=== PATIENT | female | born 1975 | race Caucasian/White ===

== ENCOUNTER → 2018-07-20 | Outpatient (CLI) | payer OTHER ==
--- NOTE | 2018-07-23 08:31 | RAD ---
DATE: 07/22/2018 EXAM: MAMMO SRAVANTHI SCREENING BILATERAL HISTORY: Screening evaluation COMPARISON: 04/25/2015 screen mammographic exam This study was interpreted with the benefit of Computerized Aided Detection (CAD ). Breast Density: HETERO The breast parenchyma is heterogenously dense, which could reduce sensitivity of mammography. Breast parenchyma level C. FINDINGS: Parenchymal distribution is stable. No suspicious calcification clusters or distortion. Minimal benign calcification is present. There is a focal asymmetry at the right upper outer breast posteriorly which measures up to 5 cm appears more evident than on the prior exam although it may represent summation of breast parenchyma. It is located 6 cm deep from the nipple. IMPRESSION: Right breast spot compression imaging at the upper outer aspect is recommended. Ultrasound may be needed. Annual screening mammography recommended. BI-RADS CATEGORY: 0 INCOMPLETE: NEEDS ADDITIONAL IMAGING EVALUATION AND/OR PRIOR MAMMOGRAMS FOR COMPARISON. RECOMMENDED FOLLOW-UP: PQRS compliance statement: Patient information was entered into a reminder system with a target due date for the next mammogram. Mammography is a sensitive method for finding small breast cancers, but it does not detect them all and is not a substitute for careful clinical examination. A negative mammogram does not negate a clinically suspicious finding and should not result in delay in biopsying a clinically suspicious abnormality. "Our facility is accredited by the [employer] Mammography [employer]." KIKED
== END | disposition home or self-care (01) ==
LOC: MAMMO 11:07
PROVIDERS: ATTEND Obstetrics & Gynecology
DX: Z12.31 Encounter for screening mammogram for malignant neoplasm of breast (principal)
CPT/HCPCS: 77063; 77067

== ENCOUNTER → 2018-08-10 | Outpatient (CLI) | payer OTHER ==
--- NOTE | 2018-08-10 14:29 | RAD ---
DATE: August 10, 2018 EXAM: DIGITAL DIAGNOSTIC RT, BREAST RIGHT SONOGRAM HISTORY: Further evaluation of asymmetric density of the upper outer quadrant of the right breast seen on screening mammogram. Patient has no palpable findings. COMPARISON: July 20, 2018 This study was interpreted with the benefit of Computerized Aided Detection (CAD). FINDINGS: Focal digital 2-D compression views of the right breast in the CC and 90 degree projections were performed. There is a persistent large area of asymmetric dense breast tissue within the upper-outer quadrant. Sonography will be performed. RIGHT BREAST SONOGRAPHY: High-resolution sonography of the upper outer quadrant of the right breast was performed. Dense nodular breast parenchyma is seen in this area which accounts for the mammographic finding. Incidental note is made of a small hypoechoic nodule measuring 7 mm in greatest dimension with a thin echogenic capsule and less than 3 lobulations. It is wider than it is tall. It is located at the 10:00 position 5 cm from the nipple. This most likely represent a fibroadenoma and may be followed in 6 months. IMPRESSION: Benign nodular breast parenchyma of the upper outer quadrant of the right breast. 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 Recommend a 6 month follow-up sonogram of the right breast for further evaluation. BI-RADS CATEGORY: 3 PROBABLE BENIGN-SHORT TERM F/U RECOMMENDED FOLLOW-UP: 6M 6 MONTH FOLLOW-UP PQRS compliance statement: Patient information was entered into a reminder system with a target due date February 08, 2019 for the next imaging study. Mammography is a sensitive method for finding small breast cancers, but it does not detect them all and is not a substitute for careful clinical examination. A negative mammogram does not negate a clinically suspicious finding and should not result in delay in biopsying a clinically suspicious abnormality. "Our facility is accredited by the [employer] Mammography Program."
--- NOTE | 2018-08-10 16:16 | RAD ---
Examination: Ultrasound pelvis HISTORY: History of ovarian cyst COMPARISON: None available FINDINGS: The uterus measures 9.6 x 9.6 x7.1 cm with endometrium measures 1.2 cm in thickness. There is a large 7.7 cm heterogeneous echogenicity identified in the left anterior fundus of the uterus likely a fibroid. The right ovary measures 4.1 x 2.1 x 2.3 cm. There is a 2.7 cm cystic structure identified in the right ovary likely a cyst. The left ovary measures 2.1 x 2.8 x 1.7 cm. Blood flow identified in the right and left ovaries. There is a 1.5 cm and a 1.2 cm solid-appearing echogenicity identified in the left ovary with vascular flow within. Trace amount of free fluid identified in the pelvis. IMPRESSION: 1. Large 7.7 cm heterogeneous echogenicity identified in the left anterior fundus of the uterus likely fibroid. 2. A 1.5 cm and a 1.2 cm solid-appearing echogenicity identified in the left ovary with vascular flow within probably solid nodules or collapse follicles. Recommend MRI pelvis further evaluation. 3. 2.7 cm cyst identified in the right ovary. Electronically signed by: Jah Narvaez MD (08/10/2018 4:13 PM) [id number]
== END | disposition home or self-care (01) ==
LOC: MAMMO 13:21
PROVIDERS: ATTEND Obstetrics & Gynecology
DX: N63.11 Unspecified lump in the right breast, upper outer quadrant (principal); N83.291 Other ovarian cyst, right side
CPT/HCPCS: 76641; 76830; 76856; 77065

== ENCOUNTER → 2018-09-13 | Outpatient (CLI) | payer OTHER ==
[~2018-09-13] MED LIST: DOCU-109 PO; IBUP-1060 PO; NORE5TAB3 PO; OXYC1TAB7 PO
[2018-09-13 10:15] LABS: BASO # 0.1 x10^3/uL (0.0-0.2); BASO % 1 % (0-3); EOS # 0.1 x10^3/uL (0.0-0.7); EOS % 1 % (0-3); HEMATOCRIT 41.1 % (36.0-47.0); HEMOGLOBIN 13.9 g/dL (12.0-15.5); LYMPH # 1.7 x10^3/uL (1.0-4.8); LYMPH % 28 % (24-48); MEAN CORPUSCULAR HEMOGLOBIN 31 pg (25-35); MEAN CORPUSCULAR HGB CONC 34 g/dL (31-37); MEAN CORPUSCULAR VOLUME 93 fL (79-100); MONO # 0.5 x10^3/uL (0.0-1.1); MONO % 7 % (0-9); NEUT % 63 % (31-73); PLATELET COUNT 220 x10^3/uL (140-400); RED BLOOD COUNT 4.42 x10^6/uL (3.50-5.40); RED CELL DISTRIBUTION WIDTH 14.1 % (11.5-14.5); WHITE BLOOD COUNT 6.3 x10^3/uL (4.0-11.0)
== END | disposition home or self-care (01) ==
LOC: SURGPAT 09:40
PROVIDERS: ATTEND Obstetrics & Gynecology
DX: D21.9 Benign neoplasm of connective and other soft tissue, unspecified (principal)
CPT/HCPCS: 36415; 85025

== ENCOUNTER 2018-09-20 09:17 | Observation (INO) | payer OTHER ==
[~2018-09-20] VITALS: Ht 154.9 cm; Wt 52.2 kg
[~2018-09-20 09:17] MED LIST changes: -DOCU-109 PO; +HYDROmorphone 2 MG/ML VIAL IV PRN; -IBUP-1060 PO; +LIDOCAINE 1% PF 2 ML VIAL. ID PRN; +ONDANSETRON PF 4 MG/2 ML VIAL. IV PRN; -OXYC1TAB7 PO; +PROCHLORPERAZINE 10 MG/2 ML VIAL. IV PRN; +fentaNYL PF VIAL 100 MCG/2 ML VIAL IV PRN
[2018-09-20 09:40] LABS: U PREG PATIENT NEGATIVE (NEG)
[2018-09-20] MEDS: IV RINGERS,LACTATED 1000ML 1,000 ML IV SCH ×2 (09:56→14:23)
[2018-09-20] MEDS ORDERED: BUPIVAC MPF-EPI 0.5%-1:200000 30 ML VIAL. ONE (10:34)
[2018-09-20] MEDS ORDERED: SURGICEL HEMOSTAT 4X8 EACH. ONE (10:35)
[2018-09-20] MEDS ORDERED: ESTROGENS, CONJ VAGINAL CREAM 30GM TUBE. ONE (10:35)
[2018-09-20] MEDS ORDERED: LIDOCAINE 1%/EPI 1:100,000 20 ML VIAL. ONE (10:36)
[2018-09-20] MEDS ORDERED: fentaNYL PF VIAL 250 MCG/5 ML VIAL ONE (11:15)
[2018-09-20] MEDS ORDERED: MIDAZOLAM HCL/PF 2 MG/2 ML VIAL. ONE (11:15)
[2018-09-20] MEDS ORDERED: ROCURONIUM 50 MG/5 ML VIAL. ONE (11:16)
[2018-09-20] MEDS ORDERED: SEVOFLURANE 61 TO 120 MINUTES. IH ONE (12:01)
[2018-09-20] MEDS ORDERED: DEXAMETHASONE SOD PHOS 20 MG/5 ML VIAL. ONE (12:01)
[2018-09-20] MEDS ORDERED: PROPOFOL 20 ML IV ONE (12:01)
[2018-09-20] MEDS ORDERED: ONDANSETRON PF 4 MG/2 ML VIAL. ONE (12:01)
[2018-09-20] MEDS ORDERED: LIDOCAINE 2% PF Vial for OR 5 ML VIAL. ONE (12:01)
[2018-09-20] MEDS ORDERED: NEOSTIGMINE METHYLSULFATE 5 MG/5 ML SYRINGE. ONE (13:32)
[2018-09-20] MEDS ORDERED: GLYCOPYRROLATE 1 MG/5 ML VIAL. ONE (13:32)
--- NOTE | 2018-09-20 13:35 | PDOC ---
BRIEF OPERATIVE NOTE Date: Sep 20, 2018 Pre-Op Diagnosis 1. Fibroids 2. Menorrhagia 3. Bilateral Ovarian Cysts Post-Op Diagnosis Same Procedure Performed TLH & BSO Surgeon Dr. Zuniga Mid Level Developer Gallo Tabor Anesthesia Type: General Blood Loss 100 ml Specimens Obtained cervix, uterus, emily. fallopian tubes and ovaries Findings enlarged, fibroid uterus with emily. ovarian cysts Complications none Operative Note see dictation JUAQUIN ZUNIGA Jr, MD Sep 20, 2018 13:35
[2018-09-20] MEDS ORDERED: ZOLPIDEM 5 MG TABLET. PO PRN (13:45)
[2018-09-20] MEDS ORDERED: ONDANSETRON PF 4 MG/2 ML VIAL. IV PRN (13:45)
[2018-09-20] MEDS ORDERED: CALCIUM CARBONATE 500 MG TAB.CHEW PO PRN (13:45)
[2018-09-20] MEDS ORDERED: PROCHLORPERAZINE 10 MG/2 ML VIAL. IV PRN (13:45)
[2018-09-20] MEDS ORDERED: SIMETHICONE 80 MG TAB.CHEW PO PRN (13:45)
[2018-09-20] MEDS ORDERED: DEXTROSE 50% 25 GM / 50ML DISP.SYRIN. IV PRN (13:45)
[2018-09-20] MEDS ORDERED: KETOROLAC 30 MG/ML VIAL. IV PRN (13:45)
[2018-09-20] MEDS ORDERED: diphenhydrAMINE HCL 25 MG CAPSULE PO PRN (13:45)
[2018-09-20] MEDS ORDERED: 0.9 % SODIUM CHLORIDE 10 ML DISP.SYRIN. IV PRN (13:45)
--- NOTE | 2018-09-20 14:06 | OP ---
DATE OF SURGERY: 09/20/2018 PREOPERATIVE DIAGNOSES: 1. Fibroids. 2. Menorrhagia. 3. Bilateral ovarian cysts. POSTOPERATIVE DIAGNOSES: 1. Fibroids. 2. Menorrhagia. 3. Bilateral ovarian cysts. PROCEDURE: TLH and BSO via da Edward robot. SURGEON: Juaquin Zuniga MD. ETHANOL MAINTENANCE MECHANIC: Tyson Tabor. ANESTHESIA: GETA. ESTIMATED BLOOD LOSS: 100 mL. COMPLICATIONS: None. FINDINGS: Enlarged fibroid uterus with bilateral ovarian cysts. SUMMARY: This is a 43-year-old patient who was diagnosed with menorrhagia, fibroids and bilateral ovarian cysts who required hysterectomy. She was unresponsive to medical treatment and has family history of breast cancer. The patient was counseled on risks, benefits and expectations of TLH-BSO and voiced a clear understanding to proceed. DESCRIPTION OF PROCEDURE: The patient was taken to the surgery suite and placed in dorsal supine position. She was placed in dorsal lithotomy position. She was prepped with Betadine solution for vaginal prep and ChloraPrep for abdominal prep. After adequate anesthesia, bivalve speculum was placed vaginally. Anterior lip of the cervix was grasped with single tooth tenaculum. The Laura uterine manipulator was then placed. The bivalve speculum was removed as was the single tooth tenaculum. Attention was now placed on abdomen. Small transverse skin incision made just below the umbilicus. The Veress needle was then placed through the infraumbilical incision site. The abdomen was allowed to insufflate up to 1.5 liters of CO2 gas. The Veress needle was then removed. The 8-mm camera trocar was then placed. The camera was then positioned. The uterus was enlarged with multiple fibroids. The fallopian tubes appeared normal. The ovaries indicated multiple cysts bilaterally. The incision was made in the left and right lower quadrant, in which 8-mm trocars were placed. An accessory port, a 5-mm size was placed in the left upper quadrant. The robot was then docked in normal fashion. I then proceeded to the console. With the aid of the bipolar cautery, the vessel sealer, the right round ligament was coagulated and dissected. The right infundibulopelvic ligament was coagulated and dissected. The right broad ligament was coagulated and dissected down to and including the right uterine artery. Same process took place with left adnexa. Bladder flap was created using the vessel sealer as well as blunt dissection. Colpotomy was performed at the level of the vaginal ring. The cervix, uterus, bilateral fallopian tubes and ovaries were then removed in their entirety. The vaginal cuff was reapproximated using V-Loc suture in a running fashion. Suction irrigation was utilized to verify good hemostasis of all pedicles. There was small amount of normal saline that was left in the posterior cul-de-sac. The robot was undocked. Trocars removed under direct visualization. The abdomen was allowed to deflate as much as possible along with mechanical manipulation. Four skin incisions were reapproximated using 4-0 Vicryl suture in subcuticular manner. A 0.5% Marcaine with epinephrine was injected at each incision site. A Premarin soaked vaginal packing was placed vaginally and the patient tolerated the procedure well and was taken to recovery room in stable condition. Sponge and needle count correct x 3. JUAQUIN ZUNIGA MD DR: FILIBERTO/johanna JOB#: [id number] / [id number]
[2018-09-20] MEDS: fentaNYL PF VIAL 100 MCG/2 ML VIAL IV PRN ×2 (14:16→14:37)
[2018-09-20] MEDS: MORPHINE SULFATE 2 MG/ML VIAL. IV PRN ×3 (14:51→15:14)
[2018-09-20 15:43] VITALS: BP 99/61
[2018-09-20 20:00] VITALS: BP 105/54
[2018-09-20] MEDS: GABAPENTIN 300 MG CAPSULE. PO SCH (22:17)
[2018-09-20 23:55] VITALS: BP 94/70
[2018-09-21 05:00] VITALS: BP 99/66
[2018-09-21 05:10] LABS: BASO # 0.1 x10^3/uL (0.0-0.2); BASO % 0 % (0-3); EOS % 0 % (0-3); HEMATOCRIT 32.7 % (36.0-47.0); HEMOGLOBIN 11.2 g/dL (12.0-15.5); LYMPH # 1.1 x10^3/uL (1.0-4.8); LYMPH % 9 % (24-48); MEAN CORPUSCULAR HEMOGLOBIN 31 pg (25-35); MEAN CORPUSCULAR HGB CONC 34 g/dL (31-37); MEAN CORPUSCULAR VOLUME 92 fL (79-100); MONO % 9 % (0-9); NEUT # 9.8 x10^3uL (1.8-7.7); NEUT % 82 % (31-73); PLATELET COUNT 168 x10^3/uL (140-400); RED BLOOD COUNT 3.56 x10^6/uL (3.50-5.40)
[2018-09-21] MEDS: GABAPENTIN 300 MG CAPSULE. PO SCH ×2 (06:16→15:17)
[2018-09-21] MEDS: oxyCODONE/APAP 5/325 1 TAB TABLET PO PRN ×2 (10:39→15:18)
[2018-09-21 12:40] VITALS: BP 98/72
[2018-09-21 15:26] VITALS: BP 101/68
--- NOTE | 2018-09-21 18:03 | DISCH ---
DISCHARGE INSTRUCTIONS Condition on Discharge Condition on Discharge: Stable Activity After Discharge Activity Instructions for Disc: Activity as tolerated Lifting Instructions after Dis: No heavy lifting Driving Instructions after Dis: No driving for 2 weeks Diet after Discharge Diet after Discharge: Regular Contacting the DRJulius after DC Call your doctor for: Concerns you may have Follow-Up Follow up with: Dr. Zuniga in 2 weeks. JUAQUIN ZUNIGA Jr, MD Sep 21, 2018 18:03
--- NOTE | 2018-09-21 18:03 | PDOC ---
SURGICAL PROGRESS NOTE Subjective Pt. feeling well. No complaints. Vital Signs Vital Signs Date Time Temp Pulse Resp B/P (MAP) Pulse Ox O2 Delivery O2 Flow Rate FiO2 09/21/18 15:26 97.9 68 18 101/68 (79) 98 97.9 09/21/18 05:00 Room Air 09/20/18 14:00 10 I&O Intake and Output 09/21/18 07:00 Intake Total 3240 ml Output Total 765 ml Balance 2475 ml Intake Oral 690 ml IV Total 2550 ml Tube Feeding 0 ml Output Urine Total 665 ml Estimated Blood Loss 100 ml PATIENT HAS A ORTEGA: No General: Alert, Oriented X3, Cooperative HEENT: Atraumatic Lungs: Clear to auscultation Heart: Regular rate Abdomen: Normal bowel sounds, Soft Extremities: No clubbing, No edema Neuro: Normal gait Psych/Mental Status: Mental status NL Labs Laboratory Tests Test 09/20/18 09:30 09/21/18 05:00 Urine Test Negative (NEG) White Blood Count 12.0 x10^3/uL (4.0-11.0) Red Blood Count 3.56 x10^6/uL (3.50-5.40) Hemoglobin 11.2 g/dL (12.0-15.5) Hematocrit 32.7 % (36.0-47.0) Mean Corpuscular Volume 92 fL (79-100) Mean Corpuscular Hemoglobin 31 pg (25-35) Mean Corpuscular Hemoglobin Concent 34 g/dL (31-37) Red Cell Distribution Width 14.0 % (11.5-14.5) Platelet Count 168 x10^3/uL (140-400) Neutrophils (%) (Auto) 82 % (31-73) Lymphocytes (%) (Auto) 9 % (24-48) Monocytes (%) (Auto) 9 % (0-9) Eosinophils (%) (Auto) 0 % (0-3) Basophils (%) (Auto) 0 % (0-3) Neutrophils # (Auto) 9.8 x10^3uL (1.8-7.7) Lymphocytes # (Auto) 1.1 x10^3/uL (1.0-4.8) Monocytes # (Auto) 1.0 x10^3/uL (0.0-1.1) Eosinophils # (Auto) 0.0 x10^3/uL (0.0-0.7) Basophils # (Auto) 0.1 x10^3/uL (0.0-0.2) Laboratory Tests Test 09/21/18 05:00 White Blood Count 12.0 x10^3/uL (4.0-11.0) Red Blood Count 3.56 x10^6/uL (3.50-5.40) Hemoglobin 11.2 g/dL (12.0-15.5) Hematocrit 32.7 % (36.0-47.0) Mean Corpuscular Volume 92 fL (79-100) Mean Corpuscular Hemoglobin 31 pg (25-35) Mean Corpuscular Hemoglobin Concent 34 g/dL (31-37) Red Cell Distribution Width 14.0 % (11.5-14.5) Platelet Count 168 x10^3/uL (140-400) Neutrophils (%) (Auto) 82 % (31-73) Lymphocytes (%) (Auto) 9 % (24-48) Monocytes (%) (Auto) 9 % (0-9) Eosinophils (%) (Auto) 0 % (0-3) Basophils (%) (Auto) 0 % (0-3) Neutrophils # (Auto) 9.8 x10^3uL (1.8-7.7) Lymphocytes # (Auto) 1.1 x10^3/uL (1.0-4.8) Monocytes # (Auto) 1.0 x10^3/uL (0.0-1.1) Eosinophils # (Auto) 0.0 x10^3/uL (0.0-0.7) Basophils # (Auto) 0.1 x10^3/uL (0.0-0.2) Assessment/Plan A: POD#1 s/p TLH & BSO P: D/c home. JUAQUIN DURAN Jr, MD Sep 21, 2018 18:03
[2018-09-21] MEDS ORDERED: OXYC1TAB7 PO (18:06)
[2018-09-21] MEDS ORDERED: DOCU-109 PO (18:06)
[2018-09-21] MEDS ORDERED: IBUP-1060 PO (18:06)
--- NOTE | 2018-09-22 16:09 | PATHOLOGY ---
[facility] Accession Number: [id number] . 01 Material submitted: . UTERUS WITH CERVIX AND BILATERAL FALLOPIAN TUBES AND OVARIES . 01 Clinical history: . Fibroid uterus, bilateral ovarian cyst, excessive or frequent menstruation . 02 Diagnosis: "Uterus with cervix and bilateral fallopian tubes and ovaries", hysterectomy and bilateral salpingo-oophorectomy: - Cervix with mild chronic cervicitis and focal squamous metaplasia. - Endometrium with weakly proliferative pattern. - Myometrium with an intramural leiomyoma measuring 6.6 cm grossly. - Fallopian tubes, bilateral, with minimal histologic alterations. - Ovary, left, with follicular cyst and corpora albicantia. - Ovary, right, with benign serous cystadenoma, resolving corpus lutea and corpora albicantia. (CLW:rachelle; 09/22/2018) QMS/09/22/2018 . 02 Electronically signed: . Altagracia Gonzalez MD, Pathologist NPI- [id number] . 01 Gross description: . The specimen is received in formalin, labeled "Tereza Lowe, uterus with cervix and bilateral fallopian tubes and ovaries". Received is a 316 g, 12.8 x 8.7 x 8.0 cm uterus with attached cervix and attached adnexa, weighing 7 and 6 g, left and right, respectively. The uterine serosa is pink-solis to light solis and smooth in appearance. The 0.8 cm cervical os is surrounded by pink-solis, granular to smooth ectocervical mucosa. The uterus is oriented using the peritoneal reflection and the anterior paracervical margin is inked black. The uterus is opened laterally to reveal a pale solis, slightly corrugated endocervical canal measuring 2.7 cm in length. The endometrial cavity is linear and moderately distorted measuring 7.2 cm in length by up to 2.9 cm in width. The endometrium is pale solis, glistening in appearance and measures 0.1 cm in thickness. Serial sectioning reveals a solis-pink, trabeculated myometrium measuring up to 3.3 cm in thickness displaying a single intramural fibroid measuring 6.6 cm in maximum dimensions, which shows no gross evidence of degeneration. . The left adnexa consists of a fimbriated fallopian tube measuring 4.7 cm in length by 0.5 cm in diameter attached to a 2.2 x 1.8 x 1.2 cm ovary. Sectioning through the fallopian tube reveals a pinpoint lumen. Sectioning through the ovary reveals a single unilocular cystic structure measuring 0.4 cm filled with blood-tinged fluid. The remaining cut surfaces display pale solis, normal ovarian stroma. . The right adnexa consists of a fimbriated fallopian tube measuring 6.6 cm in length by 0.5 cm in diameter attached to a 2.3 x 2.1 x 1.1 cm ovary. Sectioning through the fallopian tube reveals a pinpoint lumen. Sectioning through the ovary reveals a single unilocular cystic structure measuring 0.7 cm filled with blood-tinged fluid. The remaining cut surfaces display pale solis, normal ovarian stroma. The specimen is submitted representatively as follows: . A1 12:00 cervix A2 6:00 cervix A3 anterior endomyometrium A4 posterior endomyometrium A5-A6 customer response representative sections of intramural fibroid A7 left adnexa A8 right adnexa. (CAA; 09/21/2018) QAC/QAC . 02 Pathologist provided ICD-10: D27.0, D25.1, N72, N83.02 . 02 CPT . 671264, 221705 Specimen Comment: A courtesy copy of this report has been sent to Specimen Comment: [phone], . Specimen Comment: Report sent to / DR ARROYO Specimen Comment: A duplicate report has been generated due to demographic updates. Performed at: 01 [facility] [address] [id number] MD Kenny Card MD Phone: [phone] Performed at: 02 [facility] [address] [place], [place] [id number] MD Sky Linares MD Phone: [phone]
== END 2018-09-21 18:25 | disposition home or self-care (01) ==
LOC: SURG 09:17 → 3 NORTH 14:20
PROVIDERS: ADMIT Obstetrics & Gynecology; ATTEND Obstetrics & Gynecology
DX: D25.9 Leiomyoma of uterus, unspecified (principal); N83.201 Unspecified ovarian cyst, right side; N83.202 Unspecified ovarian cyst, left side; N92.0 Excessive and frequent menstruation with regular cycle; Z80.3 Family history of malignant neoplasm of breast
CPT/HCPCS: 36415; 58573; 81025; 85025; 86850; 86900; 86901; 88307; 96374; A7015; G0378; G0379; J0690; J0780; J1100; J1885; J2001; J2250; J2270; J2405; J2704; J2710; J3010; J3490; J7030; J7120

== ENCOUNTER → 2019-01-28 | Outpatient (CLI) | payer OTHER ==
[~2019-01-28] MED LIST changes: +DOCU-109 PO; -HYDROmorphone 2 MG/ML VIAL IV PRN; +IBUP-1060 PO; -LIDOCAINE 1% PF 2 ML VIAL. ID PRN; -ONDANSETRON PF 4 MG/2 ML VIAL. IV PRN; +OXYC1TAB7 PO; -PROCHLORPERAZINE 10 MG/2 ML VIAL. IV PRN; -fentaNYL PF VIAL 100 MCG/2 ML VIAL IV PRN
--- NOTE | 2019-01-28 13:17 | RAD ---
Right breast ultrasound, 01/28/2019: History: 6 month follow-up A targeted ultrasound exam of the right breast was performed in the area where a small nodule was seen on the 08/10/2018 exam. This nodule is redemonstrated at the 10:00 location approximately 5 cm in the nipple. This small hypoechoic nodule currently measures 4 x 2 x 2 mm. There is a suggestion of a thin internal septation. It has decreased in size since the previous study at which time it measured 7 x 3 x 4. The appearance suggests a regressing complicated cyst. No other abnormality is seen in this region. IMPRESSION: Regressing small right breast nodule, probably a complicated cyst. BI-RADS 2-benign findings
== END | disposition home or self-care (01) ==
LOC: US 15:00
PROVIDERS: ATTEND Family Medicine
DX: N63.11 Unspecified lump in the right breast, upper outer quadrant (principal); R07.9 Chest pain, unspecified
CPT/HCPCS: 76641

== ENCOUNTER → 2019-08-01 | Outpatient (CLI) | payer OTHER ==
--- NOTE | 2019-08-01 15:43 | RAD ---
DATE: 08/01/2019 EXAM: BREAST RIGHT HISTORY: Right breast mass COMPARISON: Right breast ultrasound 01/28/2019 This study was interpreted with the benefit of Computerized Aided Detection (CAD). FINDINGS: Targeted sonographic evaluation of the right breast was performed at the 9:00 position, 5 cm from the nipple, 10:00 position 5 cm from the nipple and 11:00 position 5 cm from the nipple. No suspicious sonographic abnormalities identified. No cystic or solid mass. No microcalcifications are suspected. Previously seen parallel circumscribed hypoechoic mass is not visualized and could have represented a dilated duct or complicated cyst that has resolved. IMPRESSION: Negative right breast ultrasound. Recommend screening mammography for which the patient is due for routine screening examination. Patient will be called for routine screening mammography. BI-RADS CATEGORY: 1 NEGATIVE RECOMMENDED FOLLOW-UP: 12M 12 MONTH FOLLOW-UP PQRS compliance statement: Patient information was entered into a reminder system with a target due date past due for the next mammogram. Mammography is a sensitive method for finding small breast cancers, but it does not detect them all and is not a substitute for careful clinical examination. A negative mammogram does not negate a clinically suspicious finding and should not result in delay in biopsying a clinically suspicious abnormality. "Our facility is accredited by the [employer] Mammography Program."
== END | disposition home or self-care (01) ==
LOC: US 15:38
PROVIDERS: ATTEND Obstetrics & Gynecology
DX: N95.0 Postmenopausal bleeding (principal); N60.01 Solitary cyst of right breast
CPT/HCPCS: 76641

== ENCOUNTER → 2019-09-06 | Outpatient (CLI) | payer OTHER ==
--- NOTE | 2019-09-06 17:54 | RAD ---
DATE: 09/06/2019 EXAM: MAMMO SRAVANTHI SCREENING BILATERAL HISTORY: Routine screening COMPARISON: 04/25/2015, 07/20/2018 mammographic exams This study was interpreted with the benefit of Computerized Aided Detection (CAD). Breast Density: SCATTERED The breast parenchyma shows scattered fibroglandular densities. Breast parenchyma level B. FINDINGS: No suspicious calcification, mass, or distortion. IMPRESSION: Stable BI-RADS CATEGORY: 1 NEGATIVE RECOMMENDED FOLLOW-UP: 12M 12 MONTH FOLLOW-UP PQRS compliance statement: Patient information was entered into a reminder system with a target due date for the next mammogram. Mammography is a sensitive method for finding small breast cancers, but it does not detect them all and is not a substitute for careful clinical examination. A negative mammogram does not negate a clinically suspicious finding and should not result in delay in biopsying a clinically suspicious abnormality. "Our facility is accredited by the [employer] Mammography Program."
== END | disposition home or self-care (01) ==
LOC: MAMMO 14:49
PROVIDERS: ATTEND Obstetrics & Gynecology
DX: Z12.31 Encounter for screening mammogram for malignant neoplasm of breast (principal)
CPT/HCPCS: 77063; 77067

== ENCOUNTER → 2020-09-13 | Outpatient (CLI) | payer OTHER ==
--- NOTE | 2020-09-13 11:41 | RAD ---
DATE: 09/13/2020 10:03 AM EXAM: MAMMO SRAVANTHI SCREENING BILATERAL HISTORY: Screening COMPARISON: 09/06/2019, 07/20/18 Bilateral CC and MLO views of the breasts were performed. Bilateral breast tomosynthesis was performed in CC and MLO projections. This study was interpreted with the benefit of Computerized Aided Detection (CAD). FINDINGS: Breast Density: SCATTERED The breast parenchyma shows scattered fibroglandular densities. Breast parenchyma level B No suspicious masses, microcalcifications or architectural distortion is present to suggest malignancy in either breast. The visualized axillae are unremarkable. IMPRESSION: No mammographic evidence of malignancy. BI-RADS CATEGORY: 1 NEGATIVE RECOMMENDED FOLLOW-UP: 12M 12 MONTH FOLLOW-UP Annual screening mammography is recommended, unless clinically indicated sooner based on symptoms or change in physical exam. PQRS compliance statement: Patient information was entered into a reminder system with a target due date for the next mammogram. Mammography is a sensitive method for finding small breast cancers, but it does not detect them all and is not a substitute for careful clinical examination. A negative mammogram does not negate a clinically suspicious finding and should not result in delay in biopsying a clinically suspicious abnormality. "Our facility is accredited by the [employer] Mammography Program."
== END ==
LOC: MAMMO 09:56
PROVIDERS: ATTEND Family Medicine
DX: Z12.31 Encounter for screening mammogram for malignant neoplasm of breast (principal)
CPT/HCPCS: 77063; 77067

== ENCOUNTER → 2020-10-10 | Outpatient (CLI) | payer OTHER ==
--- NOTE | 2020-10-10 16:21 | KCIC ---
EXAM: XR BILATERAL HIP (WITH OR WITHOUT PELVIS) LEFT 2 VIEWS 10/10/2020 2:30 PM CLINICAL INDICATION: Left hip pain for 2 years COMPARISON: None TECHNIQUE: AP view of the pelvis and AP and frog-leg lateral view of the left hip FINDINGS: No acute fracture. Alignment is normal. The hip joint space is maintained. Sacroiliac join ts and pubic symphysis are unremarkable. There is transitional anatomy lumbosacral junction. IMPRESSION: No acute osseous abnormality or degenerative joint disease. Electronically signed by: Melodie Ruth MD (10/10/2020 4:19 PM) [id number]
--- NOTE | 2020-10-10 16:24 | KCIC ---
EXAM: XR LUMBAR SPINE 4+V 10/10/2020 2:30 PM CLINICAL INDICATION: Low back pain in recent weeks, chronic left hip pain for 2 years. COMPARISON: None TECHNIQUE: AP, lateral, right left oblique, flexion, extension, and coned-down lateral views of the lumbar spine. FINDINGS: There is transitional anatomy at the lumbosacral junction. For the purpose of this report, a numbering system with hypoplastic ribs at T12 and the lowest disc space labeled L5-S1 is used. No acute fracture. Alignment is normal. Disc spaces are maintained. Facet joints are unremarkable. IMPRESSION: Transitional anatomy at the lumbosacral junction. Otherwise unremarkable radiograph of th e lumbar spine. Electronically signed by: Melodie Ruth MD (10/10/2020 4:21 PM) [id number]
== END ==
LOC: KCIC 14:27
PROVIDERS: ATTEND Family Medicine
DX: M54.5 Low back pain (principal); M25.552 Pain in left hip
CPT/HCPCS: 72114; 73502

== ENCOUNTER → 2022-01-22 | Outpatient (CLI) | payer OTHER ==
--- NOTE | 2022-01-22 11:23 | RAD ---
Bilateral digital screening 2-D and 3-D (digital breast tomosynthesis) mammogram: Reason for examination: Routine screening. Comparison: Mammograms from 09/13/2020, 09/06/2019, 08/10/2018, 07/20/2018. Interpretation was made with the benefit of CAD. FINDINGS: Breast density: Category B. There are scattered areas of fibroglandular density. No suspicious breast mass, malignant appearing calcifications, or architectural distortion is seen. T here are 2 small oval circumscribed masses in the right breast which are stable. IMPRESSION: No evidence of malignancy. Assessment: BI-RADS 2. Benign findings. Recommendation: Routine screening mammograms. The patient will receive a letter with the results in the mail. Patient information will be entered i nto the mammography reminder system with a target recall date for the next mammogram. A reminder hardeep er will be generated. Electronically signed by: Juliana Archer MD (01/22/2022 11:05 AM) [id number]
== END ==
LOC: MAMMO 08:00
PROVIDERS: ATTEND Obstetrics & Gynecology
DX: Z12.31 Encounter for screening mammogram for malignant neoplasm of breast (principal)
CPT/HCPCS: 77063; 77067